=== PATIENT | female | born 1960 | race Two or more races ===

== ENCOUNTER 2023-09-17 18:44 | Emergency (ER) | payer MEDICAID ==
[~2023-09-17] VITALS: Ht 154.9 cm; Wt 74.8 kg
[2023-09-17] MEDS ORDERED: LORAZEPAM INJ 2 MG/ML VIAL ONE (19:52)
[2023-09-17] MEDS: LORAZEPAM INJ 2 MG/ML VIAL IV ONE (19:53)
[2023-09-17 20:22] LABS: BASOPHILS % (AUTO) 0.4 % (0.0-2.0); EOSINOPHILS # (AUTO) 0.1 K/uL (0.0-0.7); EOSINOPHILS % (AUTO) 0.8 % (0.0-6.0); HEMATOCRIT 39 % (33-45); HEMOGLOBIN 13.2 g/dL (11.5-14.8); LYMPHOCYTES # (AUTO) 1.6 K/uL (0.8-4.8); LYMPHOCYTES % (AUTO) 17.4 % (20.0-44.0); MEAN CORPUSCULAR HEMOGLOBIN 28 PG (26.0-33.0); MEAN CORPUSCULAR HGB CONC 34 g/dl (31.0-36.0); MEAN CORPUSCULAR VOLUME 85 fL (82-100); MONOCYTES # (AUTO) 0.7 K/uL (0.1-1.30); MONOCYTES % (AUTO) 7.4 % (2.0-12.0); NEUTROPHILS # (AUTO) 6.8 K/uL (1.8-8.9); PLATELET COUNT (AUTO) 246 K/uL (150-450); RED BLOOD CELL COUNT(AUTO) 4.66 MIL/uL (4.0-5.2); RED CELL DISTRIBUTION WIDTH 13.8 % (11.5-15.0); WHITE BLOOD COUNT (AUTO) 9.2 K/uL (4.3-11.0)
[2023-09-17 20:34] LABS: CALCIUM, SERUM 9.5 mg/dL (8.5-10.1); CARBON DIOXIDE 28 mmol/L (21-32); CHLORIDE 99 mmol/L (98-107); CREATININE 0.7 mg/dL (0.6-1.3); GLUCOSE 105 mg/dL (74-106); POTASSIUM 2.9 mmol/L (3.5-5.1); SODIUM SERUM 137 mmol/L (136-145); UREA NITROGEN, BLOOD 5 mg/dL (7-18)
[2023-09-17 20:48] LABS: NT-PRO BNP 65 pg/mL (0-125)
[2023-09-17] MEDS ORDERED: POTASSIUM CHLORIDE 20 MEQ TAB.PRT.SR PO ONE (21:09)
[2023-09-17] MEDS: POTASSIUM CHLORIDE 20 MEQ TAB.PRT.SR PO ONE (21:10)
[2023-09-17 21:15] LABS: APPEARANCE,URINE CLEAR (CLEAR); BILIRUBIN,URINE NEGATIVE (NEGATIVE); BLOOD, URINE 1+ Ery/uL (NEGATIVE); COLOR,URINE YELLOW (YELLOW); KETONES,URINE TRACE mg/dL (NEGATIVE); LEUKOCYTE ESTERASE ,URINE 1+ (NEGATIVE); NITRITE, URINE NEGATIVE (NEGATIVE); PROTEIN,URINE NEGATIVE (NEGATIVE); UGLUCOSE NEGATIVE (NEGATIVE); UROBILINOGEN,URINE 0.2 EU/dL (0.2)
[2023-09-17 21:28] VITALS: BP 134/86; TEMP 98; O2SAT 99
[2023-09-17 21:33] LABS: ADD URINE CULTURE YES; BACTERIA,URINE 1+ /HPF (None Seen); SQUAMOUS EPITHELIAL CELL,UR 0-2 /HPF (None Seen)
== END 2023-09-17 21:29 | disposition home or self-care (01) ==
LOC: ER 18:54
DX: F41.9 Anxiety disorder, unspecified (principal); I10 Essential (primary) hypertension; E78.5 Hyperlipidemia, unspecified; K21.9 Gastro-esophageal reflux disease without esophagitis
CPT/HCPCS: 36415; 71045-TC; 80048-TC; 81001; 83880; 84484-TC; 85025-TC; 87086-TC; J2060

== ENCOUNTER 2024-11-22 08:09 | Inpatient (IN) | payer MEDICARE, OTHER ==
[~2024-11-22] VITALS: Ht 152.4 cm; Wt 81.6 kg
[~2024-11-22 08:09] MED LIST: FENTANYL PF 250MCG/5ML AMPUL ONE; ROCURONIUM BROMIDE 50 MG/5 ML ONE
[2024-11-22] MEDS ORDERED: LORA-259 PO (08:28)
[2024-11-22] MEDS ORDERED: TRAM50TA2 PO (08:28)
[2024-11-22] MEDS ORDERED: AMLO5TAB4 PO (08:28)
[2024-11-22] MEDS ORDERED: GABA300C PO (08:28)
[2024-11-22] MEDS ORDERED: ZOLP10TA2 PO (08:28)
[2024-11-22] MEDS ORDERED: CLIN300C12 PO (08:28)
[2024-11-22] MEDS ORDERED: VANCOMYCIN 1 GM VIAL ONE (10:06)
[2024-11-22] MEDS ORDERED: OXYMETAZOLINE HCL NASAL SPRAY 30 ML BOTTLE NS ONE (10:06)
[2024-11-22] MEDS ORDERED: LIDOCAINE 2%-EPI 1:100,000 30 ML VIAL ONE (10:06)
[2024-11-22] MEDS ORDERED: dexaMETHasone SOD PHOSPHATE 2 ML ONE (10:06)
[2024-11-22] MEDS ORDERED: LABETALOL 20 MG/4 ML VIAL ONE (11:24)
[2024-11-22] MEDS ORDERED: ACETAMINOPHEN 325 MG TABLET PO PRN ×2 (12:30→14:30)
[2024-11-22] MEDS: IV NS 0.9% 1,000 ML IV PRN (13:29)
[2024-11-22] MEDS: HYDROMORPHONE 1 MG/1 ML DISP.SYRIN IV PRN (13:29)
[2024-11-22] MEDS ORDERED: MAGNESIUM HYDROXIDE 30 ML UDC PO PRN (14:30)
[2024-11-22] MEDS ORDERED: ONDANSETRON HCL/PF 4 MG/2 ML VIAL IVP PRN (14:30)
[2024-11-22] MEDS ORDERED: Z GUARD REMEDY 4 OZ OINT TP PRN (14:30)
[2024-11-22] MEDS ORDERED: LORAZEPAM 1 MG TABLET PO PRN (15:00)
[2024-11-22] MEDS ORDERED: GABAPENTIN 300 MG CAPSULE PO PRN (15:00)
[2024-11-22] MEDS ORDERED: AMLODIPINE BESYLATE 5 MG TABLET PO PRN (15:00)
[2024-11-22 16:00] VITALS: BP 129/82; TEMP 97.1; O2SAT 97
[2024-11-22 20:00] VITALS: BP 122/81; TEMP 98.1; O2SAT 98
[2024-11-22] MEDS: ONDANSETRON HCL/PF 4 MG/2 ML VIAL IV PRN (20:00)
[2024-11-22] MEDS: ZOLPIDEM TARTRATE 10 MG TABLET PO SCH (22:28)
[2024-11-22] MEDS: VANCOMYCIN 1 GM in IV D5W 250ml IV SCH (22:28)
[2024-11-23] MEDS: TRAMADOL HCL 50 MG TABLET PO PRN (00:25)
[2024-11-23] MEDS: MAG HYDROX/AL HYDROX/SIMETH 30 ML UDC PO PRN (00:25)
[2024-11-23 08:00] VITALS: BP 127/78; TEMP 98.4; O2SAT 98
== END 2024-11-23 11:20 | disposition home or self-care (01) | DRG 142 ==
LOC: DS 08:09 → MED 13:13
PROVIDERS: ADMIT Nurse Practitioner Family; ATTEND Nurse Practitioner Family
PROC: 0NSR0ZZ Reposition Maxilla, Open Approach (ICD-10-PCS; principal; 2024-11-22)
PROC: 0NUT07Z Supplement Right Mandible with Autologous Tissue Substitute, Open Approach (ICD-10-PCS; principal; 2024-11-22)
PROC: 0NUR07Z Supplement Maxilla with Autologous Tissue Substitute, Open Approach (ICD-10-PCS; principal; 2024-11-22)
PROC: 0N5T0ZZ Destruction of Right Mandible, Open Approach (ICD-10-PCS; principal; 2024-11-22)
PROC: 0N5R0ZZ Destruction of Maxilla, Open Approach (ICD-10-PCS; principal; 2024-11-22)
PROC: 0NST0ZZ Reposition Right Mandible, Open Approach (ICD-10-PCS; principal; 2024-11-22)
DX: S02.40CB Maxillary fracture, right side, initial encounter for open fracture (principal); S02.609B Fracture of mandible, unspecified, initial encounter for open fracture; X58.XXXA Exposure to other specified factors, initial encounter; Y92.9 Unspecified place or not applicable; Y93.9 Activity, unspecified; Y99.9 Unspecified external cause status; D16.4 Benign neoplasm of bones of skull and face; D16.5 Benign neoplasm of lower jaw bone; M27.2 Inflammatory conditions of jaws; E78.5 Hyperlipidemia, unspecified; K21.9 Gastro-esophageal reflux disease without esophagitis; I10 Essential (primary) hypertension; Z88.0 Allergy status to penicillin; E66.9 Obesity, unspecified; Z68.35 Body mass index [BMI] 35.0-35.9, adult
CPT/HCPCS: 88305-TC; 88311-TC; 88312-TC; A4223; C1713; G0378; J0690; J1100; J1171; J2405; J2704; J3010; J3370; J3490; J7030; J7040; J7060

== ENCOUNTER 2025-04-10 08:56 | Inpatient (IN) | payer MEDICARE, OTHER ==
[~2025-04-10] VITALS: Ht 152.4 cm; Wt 85.5 kg
[2025-04-10] MEDS: VANCOMYCIN 1 GM in IV D5W 250ml IV SCH (01:00)
[~2025-04-10 08:56] MED LIST changes: +AMLO5TAB4 PO; +CLIN300C12 PO; -FENTANYL PF 250MCG/5ML AMPUL ONE; +GABA300C PO; +LORA-259 PO; -ROCURONIUM BROMIDE 50 MG/5 ML ONE; +TRAM50TA2 PO; +ZOLP10TA2 PO
[2025-04-10] MEDS ORDERED: LIDOCAINE 2%-EPI 1:100,000 30 ML VIAL ONE (12:32)
[2025-04-10] MEDS ORDERED: VANCOMYCIN 1 GM VIAL ONE (12:32)
[2025-04-10] MEDS ORDERED: dexaMETHasone SOD PHOSPHATE 2 ML ONE (12:32)
[2025-04-10] MEDS ORDERED: FENTANYL PF 250MCG/5ML AMPUL ONE (12:39)
[2025-04-10] MEDS ORDERED: LABETALOL 20 MG/4 ML VIAL ONE (13:58)
[2025-04-10] MEDS ORDERED: FENTANYL PF 100MCG/2ML AMPUL ONE (15:13)
[2025-04-10] MEDS ORDERED: ONDANSETRON HCL/PF 4 MG/2 ML VIAL ONE (15:14)
[2025-04-10] MEDS ORDERED: MAGNESIUM HYDROXIDE 30 ML UDC PO PRN (16:30)
[2025-04-10] MEDS: HYDROMORPHONE 1 MG/1 ML DISP.SYRIN IV PRN (17:13)
[2025-04-10] MEDS: IV NS 0.9% 1,000 ML IV PRN (18:44)
[2025-04-10] MEDS: METOCLOPRAMIDE HCL 10 MG/2 ML VIAL IV PRN (19:22)
[2025-04-10 20:00] VITALS: BP 141/81; TEMP 97.5; O2SAT 96
[2025-04-11] MEDS: VANCOMYCIN 1 GM in IV D5W 250ml IV SCH (00:32)
[2025-04-11] MEDS: ACETAMINOPHEN 325 MG TABLET PO PRN (00:33)
[2025-04-11] MEDS: ONDANSETRON HCL/PF 4 MG/2 ML VIAL IV PRN (00:48)
[2025-04-11 08:00] VITALS: BP 129/83; TEMP 98.6; O2SAT 100
[2025-04-11] MEDS: PANTOPRAZOLE 40 MG TABLET.DR PO SCH (08:00)
== END 2025-04-11 12:03 | disposition left against medical advice (07) | DRG 908 ==
LOC: DS 08:56 → MED 15:55
PROVIDERS: ADMIT Nurse Practitioner Family; ATTEND Nurse Practitioner Family
PROC: 0N5R0ZZ Destruction of Maxilla, Open Approach (ICD-10-PCS; principal; 2025-04-10 13:00)
PROC: 0NUT07Z Supplement Right Mandible with Autologous Tissue Substitute, Open Approach (ICD-10-PCS; principal; 2025-04-10 13:00)
PROC: 09UQ07Z Supplement Right Maxillary Sinus with Autologous Tissue Substitute, Open Approach (ICD-10-PCS; principal; 2025-04-10 13:00)
PROC: 0NPW07Z Removal of Autologous Tissue Substitute from Facial Bone, Open Approach (ICD-10-PCS; principal; 2025-04-10 13:00)
PROC: 0NSR04Z Reposition Maxilla with Internal Fixation Device, Open Approach (ICD-10-PCS; principal; 2025-04-10 13:00)
PROC: 0N5T0ZZ Destruction of Right Mandible, Open Approach (ICD-10-PCS; principal; 2025-04-10 13:00)
PROC: 0NST0ZZ Reposition Right Mandible, Open Approach (ICD-10-PCS; principal; 2025-04-10 13:00)
PROC: 0NUR07Z Supplement Maxilla with Autologous Tissue Substitute, Open Approach (ICD-10-PCS; principal; 2025-04-10 13:00)
DX: T86.831 Bone graft failure (principal); S02.40CK Maxillary fracture, right side, subsequent encounter for fracture with nonunion; S02.609K Fracture of mandible, unspecified, subsequent encounter for fracture with nonunion; M27.2 Inflammatory conditions of jaws; D16.4 Benign neoplasm of bones of skull and face; J32.0 Chronic maxillary sinusitis; Y83.2 Surgical operation with anastomosis, bypass or graft as the cause of abnormal reaction of the patient, or of later complication, without mention of misadventure at the time of the procedure; E78.5 Hyperlipidemia, unspecified; K21.9 Gastro-esophageal reflux disease without esophagitis; X58.XXXD Exposure to other specified factors, subsequent encounter; Z88.0 Allergy status to penicillin
CPT/HCPCS: 88305-TC; 88311-TC; A4217; A4223; A4338; C1713; G0378; J0360; J0690; J1100; J1171; J2405; J2704; J2765; J3010; J3370; J3490; J7030; J7060